=== PATIENT | female | born 1960 | race Caucasian/White ===

== ENCOUNTER → 2022-01-05 | Outpatient (CLI) | payer BC ==
--- NOTE | 2022-01-05 08:20 | US ---
EXAMINATION TYPE: US transvaginal DATE OF EXAM: 01/05/2022 COMPARISON: NONE CLINICAL HISTORY: N95.0 POST MENOPAUSAL BLEEDING. PMB TECHNIQUE: Transvaginal (TV). Date of LMP: Years ago EXAM MEASUREMENTS: Uterus: 7.6 x 4.1 x cm Endometrial Stripe: 1.2 cm 1. Uterus: Anteverted wnl 2. Endometrium: slightly heterogenous 3. Right Ovary: Obscured by overlying bowel gas 4. Left Ovary: Obscured by overlying bowel gas 5. Bilateral Adnexa: wnl 6. Posterior cul-de-sac: wnl IMPRESSION: 1. The endometrial stripe is heterogeneous and measures 1.2 cm which appears thickened. Endometrial h yperplasia or carcinoma not excluded correlate clinically.
== END | disposition home or self-care (01) ==
LOC: RADUSWWP 07:22
PROVIDERS: ATTEND Obstetrics & Gynecology
DX: R93.89 Abnormal findings on diagnostic imaging of other specified body structures (principal); N95.0 Postmenopausal bleeding
CPT/HCPCS: 76830

== ENCOUNTER → 2022-02-28 | Outpatient (CLI) | payer BC ==
--- NOTE | 2022-02-28 08:28 | XR ---
EXAMINATION TYPE: XR chest 2V DATE OF EXAM: 02/28/2022 COMPARISON: NONE HISTORY: Presurgical study for newly diagnosed endometrial cancer. TECHNIQUE: Frontal and lateral views of the chest are obtained. FINDINGS: Slightly elevated left hemidiaphragm. There is no focal air space opacity, pleural effusio n, or pneumothorax seen. The cardiac silhouette size is upper limits of normal. The osseous struct ures are intact. IMPRESSION: No acute process.
== END | disposition home or self-care (01) ==
LOC: RADXRMAIN 08:03
PROVIDERS: ATTEND Obstetrics & Gynecology
DX: Z01.818 Encounter for other preprocedural examination (principal); C54.1 Malignant neoplasm of endometrium
CPT/HCPCS: 71046

== ENCOUNTER → 2022-03-02 | Outpatient (CLI) | payer BC ==
[2022-03-02 17:49] LABS: Basophils # (A) 0.2 k/uL (0-0.2); Basophils % (A) 2 %; Eosinophils # (A) 0.4 k/uL (0-0.7); Eosinophils % (A) 3 %; HCT 47.2 % (34.0-46.0); HGB 14.2 gm/dL (11.4-16.0); Lymphocytes # (A) 2.4 k/uL (1.0-4.8); Lymphocytes % (A) 19 %; MCH 26.7 pg (25.0-35.0); MCHC 30.2 g/dL (31.0-37.0); MCV 88.6 fL (80.0-100.0); Mean Platelet Volume 7.6; Monocytes # (A) 0.8 k/uL (0-1.0); Monocytes % (A) 6 %; Neutrophils # (A) 8.5 k/uL (1.3-7.7); Neutrophils % (A) 68 %; Platelet Count 319 k/uL (150-450); RBC 5.33 m/uL (3.80-5.40); RDW 13.8 % (11.5-15.5); WBC 12.6 k/uL (3.8-10.6)
[2022-03-02 17:57] LABS: ALT 18 U/L (4-34); AST 24 U/L (14-36); African American GFR (CKD) 72 (>60 ml/min/1.73 sqM); Albumin 4.5 g/dL (3.5-5.0); Albumin/Globulin Ratio 1.4; Alkaline Phosphatase 112 U/L (38-126); Anion Gap 7 mmol/L; Blood Urea Nitrogen 32 mg/dL (7-17); Calcium 9.4 mg/dL (8.4-10.2); Carbon Dioxide 26 mmol/L (22-30); Chloride 101 mmol/L (98-107); Globulin 3.2 g/dL; Glucose 132 mg/dL (74-99); Non-African American GFR(CKD) 63 (>60 ml/min/1.73 sqM); Potassium 4.1 mmol/L (3.5-5.1); Sodium 134 mmol/L (137-145); Total Bilirubin 0.6 mg/dL (0.2-1.3); Total Protein 7.7 g/dL (6.3-8.2)
--- NOTE | 2022-03-03 07:55 | CT ---
EXAMINATION TYPE: CT abdomen pelvis w con DATE OF EXAM: 03/02/2022 COMPARISON: None INDICATION: endometrial ca DLP: 1864.2 mGycm, Automated exposure control for dose reduction was used. CONTRAST: 100 mL of Isovue 300. Study performed with Oral Contrast TECHNIQUE: Axial images were obtained from above the diaphragm to the pubic rami in the axial plane a t 5 mm thick sections. Reconstructed images are reviewed on the computer in the coronal plane. FINDINGS: Limited CT sections are obtained the lung bases. The lung bases are clear. CT ABDOMEN: Liver: Normal Spleen: Normal Pancreas: Normal Adrenal glands: The adrenal glands are normal. Gallbladder: Gallstone is present. Kidneys: No masses are evident. No hydronephrosis is present. No cysts are present. Delayed images were obtained through the kidneys, which remain unremarkable. Aorta: Vascular calcification is within the aorta. Inferior vena cava: Normal. CT PELVIS: Loops of bowel within the abdomen and pelvis are normal. There are loops of bowel which are incom pletely distended or lack oral contrast limiting their evaluation. Appendix: Normal Urinary bladder: Normal. Genitourinary structures: Uterus and adnexa appear normal. Osseous structures: No suspicious lytic or sclerotic lesions. Degenerative disc changes at the L5-S1 level. Lymphadenopathy: No suspicious enlarged lymphadenopathy is identified within the abdomen or pelvis. IMPRESSIONS: 1. No suspicious changes to suggest metastatic disease.
== END | disposition home or self-care (01) ==
LOC: RADCTMAIN 17:10
PROVIDERS: ATTEND Obstetrics & Gynecology
DX: Z01.818 Encounter for other preprocedural examination (principal); C54.1 Malignant neoplasm of endometrium; E11.65 Type 2 diabetes mellitus with hyperglycemia
CPT/HCPCS: 80053; 85025; 83036; 74177; 36415; Q9967

== ENCOUNTER → 2022-09-06 | Outpatient (CLI) | payer BC ==
--- NOTE | 2022-09-06 16:54 | P.SLEEP ---
History of Present Illness DATE: [] CONSULTATION/NEW PATIENT EVALUATION HISTORY OF PRESENT ILLNESS/SLEEP-WAKE EVALUATION: 62year old lady had been evaluated in the sleep center for possible obstructive sleep apnea hypopnea syndrome. SLEEP SCHEDULE: Usually sleep schedule on weekdays from 10 PM to 6 AM, during days off from 11 PM to 9 AM. FALLING ASLEEP: Usually no significant problems with falling asleep, although patient has TV set in bedroom. DURING SLEEP: Patient usually sleeps on the side position or in the chair. She wakes up from sleep 2 times with nocturia. Positive history of snoring and witnessed episodes of stop breathing during the sleep. No history of hypnogogical hallucinations, sleep paralysis, or cataplexy. DURING THE DAY/WAKE STATE: Patient feels sleepiness during the day. [place] sleepiness scale is increased to 10. Patient may take nap one week and. PAST MEDICAL HISTORY: Hypertension, diabetes mellitus, hyperlipidemia, endometrial cancer. PAST SURGICAL HISTORY: Total hysterectomy for endometrial cancer. MEDICATIONS: Lisinoprilhydrochlorothiazide, atorvastatin, amlodipine, metformin, ezetimibe. SOCIAL HISTORY: Negative for smoking, alcohol consumption occasional. FAMILY HISTORY: Hypertension, heart problems, hyperlipidemia, arthritis. REVIEW OF SYSTEMS: Snoring, multiple awakenings from sleep. No fevers. No double vision. No recent chest pain. No shortness of breath. No abdominal pain. No bleeding episodes. No blood in urine. No seizure episodes. PHYSICAL EXAMINATION: GENERAL: A pleasant patient without any distress. VITAL SIGNS: BP 129/83 , HR 90 , RR 16 , weight 228 pounds, height 5 foot 3-1/2 inches, body mass index 39.7 . HEENT: PERRLA, EOMI. Evaluation of oropharynx showed tongue protrudes midline, low position of soft palate Mallampati 4. NECK: Supple. No JVD. Thyroid is not palpable. 14-1/4 inches in circumference. LUNGS: Clear to percussion and to auscultation. Good air exchange. No wheezing or rhonchi. HEART: S1, S2 regular. No murmurs, gallops or rubs. ABDOMEN: Soft and nontender. Bowel sounds are present. No organomegaly appreciated. Obese EXTREMITIES: No clubbing or cyanosis. FABRICATING MACHINE OPERATOR: Awake, alert, and oriented x3. Cranial nerves 2 to 7 intact. There is no fasciculation or atrophy noted. No focal deficits observed. ASSESSMENT: 1. Snoring, witnessed episodes of sleep apneas, extremely low position of soft palate Mallampati 4. Obstructive sleep apnea hypopnea syndrome. 2. Obesity, body mass index 39.7. 3 hypertension. 4. Diabetes mellitus. 5 status post total hysterectomy for endometrial cancer. 6. Hyperlipidemia. PLAN: 1. Polysomnography for evaluation of patient's breathing during sleep. 2. CPAP/BiPAP titration if sleep study confirms obstructive sleep apnea- hypopnea syndrome. 3. Preferable position during sleep on the side. 4. No driving if patient feels any sleepiness. Patient is aware of civil and criminal liability for unsafe driving. 5. Sleep hygiene with regular sleep time for at least 7.5-8 hours. 6. Watching and losing weight. Thank you very much for referring this patient for consultation. Sincerely, Rojas Che MD, PhD, FAASM. Diplomat of [place] [employer], Sleep Medicine Board by [place] [employer] [place] [employer] [facility] [facility] - Sleep Note Sleep Note: Temperature: Pulse Rate: Respiratory Rate: Blood Pressure: SpO2: Height: Weight: BMI: Neck Circumference:
== END ==
LOC: SLEEP 16:11
PROVIDERS: ATTEND Internal Medicine
DX: G47.33 Obstructive sleep apnea (adult) (pediatric) (principal); E66.9 Obesity, unspecified; Z68.39 Body mass index [BMI] 39.0-39.9, adult; I10 Essential (primary) hypertension; E11.9 Type 2 diabetes mellitus without complications; E78.5 Hyperlipidemia, unspecified; Z90.710 Acquired absence of both cervix and uterus; Z79.4 Long term (current) use of insulin
CPT/HCPCS: 99211

== ENCOUNTER 2022-10-27 06:52 | Day surgery (SDC) | payer BC ==
[2022-10-25 15:58] VITALS: BMI 39.6
[~2022-10-27 06:52] MED LIST: LACTATED RINGERS 1,000 ML IV SCH
[2022-10-27 07:35] VITALS: RESP 16; TEMP 97.6
[2022-10-27 07:50] LABS: Glucose,Whole Blood 127 mg/dL (70-110)
[2022-10-27] MEDS ORDERED: LIDOCAINE 2% INJ 20 MG/ML (2 ML VIAL) ONE (08:03)
[2022-10-27] MEDS ORDERED: PROPOFOL 10 MG/ML 20 ML VIAL IV ONE (08:03)
--- NOTE | 2022-10-27 08:35 | P.PCN ---
Date of Procedure: 10/27/22 Procedure(s) Performed: BRIEF HISTORY: Patient is a 62-year-old pleasant white female scheduled for an elective colonoscopy as a part of screening for colon cancer. PROCEDURE PERFORMED: Colonoscopy. PREOPERATIVE DIAGNOSIS: Screening for colon cancer. IV sedation per Anesthesia. PROCEDURE: After informed consent was obtained, the patient, was brought into the endoscopy unit. IV sedation was administered by Anesthesia under continuous monitoring. Digital rectal examination was normal. Initially the Olympus CF-160 flexible video colonoscope was then inserted in the rectum, gradually advanced into the cecum without any difficulty. Careful examination was performed as the scope was gradually being withdrawn. Ileocecal valve and the appendiceal orifice were visualized and appeared normal. Prep was excellent. Mucosa of the cecum, ascending colon, transverse colon, descending colon, sigmoid colon, and rectum appeared normal. Retroflexion was performed in the rectum and no lesions were seen. The patient tolerated the procedure well. IMPRESSION: Normal-appearing colon from rectum to cecum with no evidence of colorectal neoplasia . RECOMMENDATIONS: Findings of this examination were discussed with the patient as well as her family.. She was advised to have a repeat screening colonoscopy in 10 years.
[2022-10-27 09:02] VITALS: BP 104/72; PULSE 89
== END 2022-10-27 09:15 | disposition home or self-care (01) ==
LOC: ORWHC2ENDO 06:52
PROVIDERS: ATTEND Internal Medicine Gastroenterology
DX: Z12.11 Encounter for screening for malignant neoplasm of colon (principal); I10 Essential (primary) hypertension; E78.5 Hyperlipidemia, unspecified; G47.33 Obstructive sleep apnea (adult) (pediatric); E11.9 Type 2 diabetes mellitus without complications; E66.9 Obesity, unspecified; Z79.84 Long term (current) use of oral hypoglycemic drugs; Z79.83 Long term (current) use of bisphosphonates; Z79.899 Other long term (current) drug therapy; Z79.02 Long term (current) use of antithrombotics/antiplatelets; Z98.890 Other specified postprocedural states
CPT/HCPCS: 45378; J2704; J2001; G0121